=== PATIENT | female | born 1985 | race Caucasian/White ===

== ENCOUNTER → 2022-11-18 | Outpatient (CLI) | payer OTHER ==
--- NOTE | 2022-11-19 09:18 | CA ---
Transthoracic Echo Report Name: Nathalia Debbie Age: 37 Gender: F : 1985 Exam Date: 11/18/2022 12:33 Exam Location: Lane [facility] Ht (in): 67 Wt (lb): 117 Ordering Physician: Wilmar Rosales MD Attending/Referring Phys: Wilmar Rosales MD General Clerk Myra Schneider, RUST Procedure CPT: Indications: R60.0 Cardiac Hx: Technical Quality: Fair Contrast 1: Total Dose (mL): Contrast 2: Total Dose (mL): MEASUREMENTS (Male / Female) Normal Values 2D ECHO LV Diastolic Diameter PLAX 3.9 cm 4.2 - 5.9 / 3.9 - 5.3 cm LV Systolic Diameter PLAX 2.5 cm IVS Diastolic Thickness 0.7 cm 0.6 - 1.0 / 0.6 - 0.9 cm LVPW Diastolic Thickness 0.7 cm 0.6 - 1.0 / 0.6 - 0.9 cm LV Relative Wall Thickness 0.4 RV Internal Dim ED PLAX 2.5 cm M-MODE Aortic Root Diameter MM 2.5 cm LA Systolic Diameter MM 3.1 cm LA Ao Ratio MM 1.2 AV Cusp Separation MM 1.9 cm DOPPLER AV Peak Velocity 127.0 cm/s AV Peak Gradient 6.4 mmHg AV Mean Velocity 98.0 cm/s AV Mean Gradient 4.1 mmHg AV Velocity Time Integral 27.2 cm LVOT Peak Velocity 92.4 cm/s LVOT Peak Gradient 3.4 mmHg LVOT Velocity Time Integral 20.0 cm MV Area PHT 4.0 cm??? Mitral E Point Velocity 81.8 cm/s Mitral A Point Velocity 57.2 cm/s Mitral E to A Ratio 1.4 MV Deceleration Time 188.3 ms MV E' Velocity 14.4 cm/s Mitral E to MV E' Ratio 5.7 TR Peak Velocity 202.8 cm/s TR Peak Gradient 16.4 mmHg Right Ventricular Systolic Press 21.4 mmHg FINDINGS Left Ventricle Normal Left ventricular size, wall thickness, systolic function with no obvious regional wall motion abnormalities. Normal Left ventricular diastolic filling pattern. Left ventricular ejection fraction is estimated at 55-60 %. Right Ventricle Normal right ventricular size and function. Right ventricular systolic pressure within normal limits. Right Atrium Normal right atrial size. Left Atrium Normal left atrial size. Mitral Valve Structurally normal mitral valve. No mitral stenosis, regurgitation or prolapse. Aortic Valve No aortic valve stenosis or regurgitation. Tricuspid Valve Structurally normal tricuspid valve. Mild tricuspid regurgitation. Pulmonic Valve Structurally normal pulmonic valve. Trace pulmonic regurgitation. Pericardium No pericardial effusion. Aorta Normal size aortic root and proximal ascending aorta. CONCLUSIONS Left ventricular ejection fraction 55-60% No mitral regurgitation Mild tricuspid regurgitation No pericardial effusion RVSP 21 Previewed by: Dr. Peña Goldsmith DO (Electronically Signed) Final Date: 19 November 2022 09:17
== END | disposition home or self-care (01) ==
LOC: RADECHMAIN 12:04
PROVIDERS: ATTEND Family Medicine
DX: I07.1 Rheumatic tricuspid insufficiency (principal); R60.0 Localized edema
CPT/HCPCS: 93306

== ENCOUNTER → 2022-12-04 | Outpatient (CLI) | payer OTHER ==
--- NOTE | 2022-12-04 12:20 | USB ---
Reason for Exam: Clinical finding. Risk Values: Fany 5 year model risk: 0.3%. NCI Lifetime model risk: 6.8%. Technique: Method: Whole Breast Handheld. Findings: The whole breast of both breasts, the axilla of both breasts and the retroareolar of both breasts were scanned. There is a complex cluster of cysts measuring 0.7 x 0.3 x 0.6 cm. Findings are probably benign. Short-term follow-up in 6 months is recommended. This area correlates with the area of discomfort. Baseline screening mammogram can be performed between age 35-40. Overall Assessment: Probably benign, BI-RAD 3 Management: Diagnostic Breast Ultrasound of the left breast in 6 months. Screening Mammogram of both breasts. A clinical breast exam by your physician is recommended on an annual basis and results should be correlated with mammographic findings. This exam should not preclude additional follow-up of suspicious palpable abnormalities. Results were given to the patient verbally at the time of exam. Electronically signed and approved by: Ramirez Thompson D.O. Radiologis
== END | disposition home or self-care (01) ==
LOC: RADUSWWP 11:43
PROVIDERS: ATTEND Obstetrics & Gynecology
DX: N60.12 Diffuse cystic mastopathy of left breast (principal); Z87.2 Personal history of diseases of the skin and subcutaneous tissue

== ENCOUNTER → 2023-05-29 | Outpatient (CLI) | payer OTHER ==
[2023-05-29 22:59] LABS: % Iron Saturation 28.31 (12.00-45.00); Ferritin 40.1 ng/mL (10.0-291.0)
== END | disposition home or self-care (01) ==
LOC: LABWHC1 14:11
PROVIDERS: ATTEND Family Medicine
DX: Z00.00 Encounter for general adult medical examination without abnormal findings (principal); D53.9 Nutritional anemia, unspecified
CPT/HCPCS: 36415; 82728; 82746; 83540; 83550

== ENCOUNTER → 2023-07-20 | Outpatient (CLI) | payer OTHER ==
--- NOTE | 2023-07-20 13:20 | MM ---
Reason for Exam: Follow-up at short interval from prior study. Baseline mammogram. Patient History: Menarche at age 13. Last menstrual period: 07/20/2023 Risk Values: Fany 5 year model risk: 0.3%. NCI Lifetime model risk: 6.8%. Prior Study Comparison: Patient's first Mammogram. Tissue Density: The breast tissue is extremely dense which could obscure a lesion on mammography. Findings: Analyzed By CAD. No new suspicious masses, calcifications or distortions. Overall Assessment: Incomplete: need additional imaging evaluation, BI-RAD 0 Management: Diagnostic Breast Ultrasound of both breasts. Results were given to the patient verbally at the time of exam. Patient should continue monthly self-breast exams. A clinical breast exam by your physician is recommended on an annual basis. This exam should not preclude additional follow-up of suspicious palpable abnormalities. Note on Fany scores and lifetime risk: 1. A Fany score greater than 3% is considered moderate risk. If this is the case, consider specialist referral to assess eligibility for a risk reducing agent. 2. If overall lifetime risk for the development of breast cancer is 20% or higher, the patient may qualify for future screening with alternating mammogram and breast MRI. Electronically signed and approved by: Parminder Vidales DO
--- NOTE | 2023-07-20 14:01 | USB ---
Reason for Exam: Follow-up at short interval from prior study. Patient History: Menarche at age 13. Risk Values: Fany 5 year model risk: 0.3%. NCI Lifetime model risk: 6.8%. Technique: Method: Targeted. Findings: The lateral section of the breast of the left breast, the axilla of the left breast and the retroareolar of the left breast were scanned. Technique utilized:US breast limited LT Image; Ultrasound imaging of: All 4 quadrants, the retroareolar region and axilla. Redemonstration of cystic lesions 24 September 0.4 centers the nipple measuring 6 x 2 x 5 mm, previously 7 x 3 x 6 mm has decreased in size. Finding could represent complicated cyst versus dilated duct. Other anechoic cysts are present with posterior acoustic enhancement. Overall Assessment: Benign, BI-RAD 2 Management: Screening Mammogram of both breasts in 1 year. A clinical breast exam by your physician is recommended on an annual basis and results should be correlated with mammographic findings. This exam should not preclude additional follow-up of suspicious palpable abnormalities. Results were given to the patient verbally at the time of exam. Electronically signed and approved by: Parminder Vidales DO
== END | disposition home or self-care (01) ==
LOC: RADMAMWWP 12:40
PROVIDERS: ATTEND Obstetrics & Gynecology
DX: N60.02 Solitary cyst of left breast (principal); R92.343 Mammographic extreme density, bilateral breasts
CPT/HCPCS: 77066; 76642; G0279; 77062

== ENCOUNTER → 2023-12-02 | Outpatient (CLI) | payer OTHER ==
[2023-12-02 17:09] LABS: HIV 2 AB Non-Reactive (Non-Reactive); HIV AB P24 Non-Reactive (Non-Reactive); HIV P24 AG Non-Reactive (Non-Reactive)
[2023-12-03 09:37] LABS: Chlamydia trachomatis rRNA Not detected; Neisseria gonorrhoeae rRNA Not detected
== END | disposition home or self-care (01) ==
LOC: LABWHC1 10:55
PROVIDERS: ATTEND Family Medicine
DX: N76.0 Acute vaginitis (principal)
CPT/HCPCS: 36415; 86780; 87390; 87491; 87591

== ENCOUNTER → 2023-12-03 | Outpatient (CLI) | payer OTHER ==
[2023-12-03 15:23] LABS: Basophils # (A) 0.05 X 10*3/uL (0.00-0.10); Basophils % (A) 0.8 %; Eosinophils # (A) 0.16 X 10*3/uL (0.04-0.35); Eosinophils % (A) 2.5 %; HCT 36.2 % (37.2-46.3); HGB 11.7 g/dL (12.0-15.0); Lymphocytes # (A) 1.65 X 10*3/uL (0.90-5.00); Lymphocytes % (A) 26.1 %; MCH 31.3 pg (27.0-32.0); MCHC 32.3 g/dL (32.0-37.0); MCV 96.8 FL (80.0-97.0); Mean Platelet Volume 9.9 FL (9.5-12.2); Monocytes # (A) 0.39 X 10*3/uL (0.20-1.00); Monocytes % (A) 6.2 %; NRBC Per 100 WBC 0 X 10*3/uL (0.00-0.01); Neutrophils # (A) 4.05 X 10*3/uL (1.80-7.70); Neutrophils % (A) 64.1 %; Platelet Count 257 X 10*3/uL (140-440); RBC 3.74 X 10*6/uL (4.10-5.20); WBC 6.32 X 10*3/uL (4.50-10.00)
[2023-12-03 15:50] LABS: Erythrocyte Sedimentation Rate 14 mm/Hr (0-20)
[2023-12-03 16:08] LABS: C Reactive Protein <0.30 mg/dL (0.00-0.80); Rheumatoid Factor, Qnt <15 IU/mL (0-15); Uric Acid 2.2 mg/dL (2.9-7.7)
[2023-12-03 20:38] LABS: DNA Double-Stranded Negative (Negative)
--- NOTE | 2023-12-04 07:59 | MR ---
EXAMINATION TYPE: MR knee LT wo con DATE OF EXAM: 12/03/2023 COMPARISON: None HISTORY: Lt knee pain TECHNIQUE: Multiplanar, multisequence imaging of the left knee is performed without IV contrast. FINDINGS: MEDIAL MENISCUS: Linear increased signal within the posterior horn of the medial meniscus is likely r eflective of positive myxoid degeneration without tear. Anterior horn is intact. LATERAL MENISCUS: Anterior and posterior horns are intact without tear. CRUCIATE LIGAMENTS: The anterior and posterior cruciate ligaments are intact and unremarkable. COLLATERAL LIGAMENTS: The medial collateral ligament and lateral collateral ligament complex are inta ct and unremarkable. EXTENSOR MECHANISM: Visualized quadriceps and patellar tendons are intact. EFFUSION: No significant suprapatellar joint effusion. POPLITEAL CYST: No popliteal/phelan cyst. TRICOMPARTMENT SPACES: Intact CARTILAGE: Intact BONE MARROW SIGNAL: No focal abnormal marrow signal is appreciated. OTHER: No additional significant abnormality is appreciated. IMPRESSION: Excessive degeneration posterior horn medial meniscus without evidence for tear.
[2023-12-04 10:13] LABS: HLA B27 NEGATIVE
== END | disposition home or self-care (01) ==
LOC: RADMRIMAIN 11:20
PROVIDERS: ATTEND Orthopaedic Surgery
DX: M17.12 Unilateral primary osteoarthritis, left knee (principal)
CPT/HCPCS: 84550; 85025; 85652; 86038; 86140; 86225; 86431; 86812

== ENCOUNTER → 2023-12-17 | Outpatient (CLI) | payer OTHER ==
--- NOTE | 2023-12-17 15:05 | US ---
EXAMINATION TYPE: US venous doppler duplex LE LT DATE OF EXAM: 12/17/2023 12:46 PM COMPARISON: NONE CLINICAL INDICATION: Female, 38 years old with history of LLE; I82.409; lt leg pain SIDE PERFORMED: Left TECHNIQUE: The lower extremity deep venous system is examined utilizing real time linear array sonog erddy with graded compression, doppler sonography and color-flow sonography. VESSELS IMAGED: Common Femoral Vein Deep Femoral Vein Greater Saphenous Vein * Femoral Vein Popliteal Vein Small Saphenous Vein * Proximal Calf Veins (* superficial vessels) The deep venous system of the left lower extremity from the common femoral vein to the proximal calf is patent and compressible with augmentable flow and normal waveforms. IMPRESSION: No left lower extremity DVT from the common femoral vein to the proximal calf veins.
== END | disposition home or self-care (01) ==
LOC: RADUSWWP 12:09
PROVIDERS: ATTEND Podiatrist Foot & Ankle Surgery
DX: I82.402 Acute embolism and thrombosis of unspecified deep veins of left lower extremity (principal); M79.662 Pain in left lower leg

== ENCOUNTER → 2024-05-23 | Outpatient (CLI) | payer OTHER ==
--- NOTE | 2024-05-23 10:32 | US ---
EXAMINATION TYPE: US extremity nonvasc mass LT DATE OF EXAM: 05/23/2024 COMPARISON: NONE CLINICAL INDICATION: Female, 38 years old with history of Left elbow; R22.9 Lump of skin; 62596 UE; P t states palpable, red lump left elbow x many months- has seen PCP and geology associate for this TECHNIQUE: Left posterior elbow FINDINGS: Possible small superficial edema left posterior elbow at palpable= 0.9 x 0.7 cm, otherwise no abnormality visualized IMPRESSION: Hypoechoic area in the subcutaneous tissues unclear etiology somewhat streaky possibly f ocal edema versus infectious/inflammatory process versus posttraumatic etiologies are in the differen tial. Consider short-term follow-up. [facility], , 05/23/2024 10:30 AM
== END | disposition home or self-care (01) ==
LOC: RADUSWWP 10:01
PROVIDERS: ATTEND Family Medicine
DX: R22.32 Localized swelling, mass and lump, left upper limb (principal)

== ENCOUNTER → 2024-05-27 | Outpatient (CLI) | payer OTHER ==
--- NOTE | 2024-05-27 12:29 | MR ---
EXAMINATION TYPE: MR cervical spine wo con DATE OF EXAM: 05/27/2024 10:49 AM CLINICAL INDICATION: Female, 38 years old with history of M48.02 M47.812 M54.2; PH[facility], Neck pain that t ravels down both arms COMPARISON: None. TECHNIQUE: Multi planar, multi sequence imaging was performed utilizing: T1-weighted, T2-weighted, an d turbo inversion recovery imaging of the cervical spine. IV Contrast: cc (none if empty) FINDINGS: Alignment: The cervical vertebral bodies have preserved heights. Alignment is within normal limits gi hemant patient positioning. Bones: Osteophytes and disc space narrowing most pronounced at the C5-C6 vertebral levels with disc o steophyte complex and mild bony edema of the adjoining endplates. Cord: The spinal cord is unremarkable with regards to their signal intensity and morphology. Discs: Intervertebral disc signal is maintained. C2-C3: No significant disc pathology. The spinal canal is patent. No neural foraminal stenosis. C3-C4: No significant disc pathology. The spinal canal is patent. No neural foraminal stenosis. C4-C5: No significant disc pathology. The spinal canal is patent. No neural foraminal stenosis. C5-C6: A disc osteophyte complex is present which minimally narrows the ventral subarachnoid space. No neural foraminal stenosis. C6-C7: No significant disc pathology. The spinal canal is patent. No neural foraminal stenosis. C7-T1: No significant disc pathology. The spinal canal is patent. No neural foraminal stenosis. Other: None. IMPRESSION: 1. No evidence for disc herniation or significant spinal canal stenosis. 2. Minimal disc degeneration with associated osteoarthritic changes worse at C5-C6 with mild bony [place] ma. [facility], , 05/27/2024 12:26 PM
== END | disposition home or self-care (01) ==
LOC: RADMRIMAIN 09:58
PROVIDERS: ATTEND Orthopaedic Surgery
DX: M48.02 Spinal stenosis, cervical region (principal); M47.812 Spondylosis without myelopathy or radiculopathy, cervical region; M50.30 Other cervical disc degeneration, unspecified cervical region
CPT/HCPCS: 72141

== ENCOUNTER → 2024-08-30 | Outpatient (CLI) | payer OTHER ==
--- NOTE | 2024-08-30 12:11 | MM ---
Reason for Exam: Screening (asymptomatic). Last mammogram was performed 1 year(s) and 2 month(s) ago. Patient History: Menarche at age 13. Risk Values: Fany 5 year model risk: 0.4%. NCI Lifetime model risk: 6.7%. Prior Study Comparison: 07/20/2023 Bilateral MG 3D diag mammo w/cad [facility], [facility]. Tissue Density: The breasts are extremely dense, which lowers the sensitivity of mammography. Findings: Analyzed By CAD. Right breast: There is no suspicious group of microcalcifications or new suspicious mass. Left breast: There is no suspicious group of microcalcifications or new suspicious mass. Overall Assessment: Negative, BI-RAD 1 Management: Screening Mammogram of both breasts in [address] [facility] will attempt to contact patient to return for supplemental views and ultrasound if indicated. Patient should continue monthly self-breast exams. A clinical breast exam by your physician is recommended on an annual basis. This exam should not preclude additional follow-up of suspicious palpable abnormalities. Note on Fany scores and lifetime risk: 1. A Fany score greater than 3% is considered moderate risk. If this is the case, consider specialist referral to assess eligibility for a risk reducing agent. 2. If overall lifetime risk for the development of breast cancer is 20% or higher, the patient may qualify for future screening with alternating mammogram and breast MRI. [facility], , 08/30/2024 12:07 PM. Electronically signed and approved by: Parminder Vidales DO
== END | disposition home or self-care (01) ==
LOC: RADMAMWWP 10:30
PROVIDERS: ATTEND Obstetrics & Gynecology
DX: Z12.31 Encounter for screening mammogram for malignant neoplasm of breast (principal); R92.343 Mammographic extreme density, bilateral breasts
CPT/HCPCS: 77067

== ENCOUNTER → 2024-11-03 | Outpatient (CLI) | payer OTHER ==
--- NOTE | 2024-11-03 10:01 | USB ---
Reason for Exam: Clinical finding. Indicated Problems: Lump or thickening of both sides. Patient History: Menarche at age 13. First Full-Term at age 18. Premenopausal. Risk Values: Fany 5 year model risk: 0.4%. NCI Lifetime model risk: 6.7%. Technique: Method: Targeted. Doppler: Color. Patient Position: Supine. Prior Study Comparison: 07/20/2023 Bilateral MG 3D diag mammo w/cad [facility], [facility]. 08/30/2024 Bilateral MG screening mammo w CAD, [facility]. Findings: The upper outer quadrant of both breasts, the area of palpable concern of both breasts, the axilla of both breasts and the retroareolar of both breasts were scanned. A complete US of all four quadrants of the breast and retro-areolar region were reviewed. Cyst which is too small to appropriately characterize at the right 12:00 position 8 cm from the nipple measuring 4 mm. Additional simple cyst left 1:00 position 3 cm from the nipple measuring 6 x 4 mm. no distinct solid masses appreciated at this time. Overall Assessment: Benign, BI-RAD 2 Management: Screening Mammogram of both breasts in 1 year. A clinical breast exam by your physician is recommended on an annual basis and results should be correlated with mammographic findings. This exam should not preclude additional follow-up of suspicious palpable abnormalities. Results were given to the patient verbally at the time of exam. [facility], , 11/03/2024 9:46 AM. Electronically signed and approved by: Keven Vasquez M.D. Radiologis
== END | disposition home or self-care (01) ==
LOC: RADUSWWP 09:18
PROVIDERS: ATTEND Obstetrics & Gynecology
DX: N60.12 Diffuse cystic mastopathy of left breast (principal); N64.4 Mastodynia

== ENCOUNTER → 2025-03-02 | Outpatient (CLI) | payer OTHER ==
--- NOTE | 2025-03-02 10:12 | US ---
EXAMINATION TYPE: US kidneys/renal and bladder DATE OF EXAM: 03/02/2025 COMPARISON: NONE CLINICAL INDICATION: Female, 39 years old with history of N28.1 CYST OF KIDNEY, ACQUIRED; TECHNIQUE: Grayscale imaging of the bilateral kidneys and urinary bladder: FINDINGS: EXAM MEASUREMENTS: Right Kidney: 12.1 x 3.4 x 5.3 cm Left Kidney: 11.5 x 4.9 x 4.6 cm Post Void Residual Volume: NA mL Right Kidney: wnl, no evidence for hydronephrosis, mass or renal calculus. Left Kidney: wnl, no evidence for hydronephrosis, mass or renal calculus. Bladder: WNL Bilateral Jets seen: Yes Normal Post Void Residual: NA There is no evidence for hydronephrosis at this point in time. No nephrolithiasis is seen. No renal masses are identified. Corticomedullary differentiation is maintained bilaterally. The urinary bladd er is anechoic. Bilateral ureteral jets identified. Incidental - hyperechoic area seen within the superior right lobe. IMPRESSION: 1. No hydronephrosis or nephrolithiasis. 2. No renal lesion identified. 3. Nonspecific right hepatic lobe hyperechoic lesion. Probably represents a benign hemangioma versus other etiologies. Consider further evaluation with MR abdomen with IV contrast (liver mass protocol) for characterization. [facility], , 03/02/2025 10:09 AM
== END | disposition home or self-care (01) ==
LOC: RADUSWWP 09:40
PROVIDERS: ATTEND Urology
DX: N28.1 Cyst of kidney, acquired (principal); K76.89 Other specified diseases of liver
CPT/HCPCS: 76770